=== PATIENT | male | born 1980 | race Hispanic/Latino ===

== ENCOUNTER 2018-03-12 12:58 | Emergency (ER) | payer OTHER | END 2018-03-12 14:24 | disposition home or self-care (01) | LOC: EDH 12:58 | DX: S21.241A Puncture wound with foreign body of right back wall of thorax without penetration into thoracic cavity, initial encounter (principal); W45.8XXA Other foreign body or object entering through skin, initial encounter; Y93.89 Activity, other specified; Y92.89 Other specified places as the place of occurrence of the external cause; Y99.8 Other external cause status ==

== ENCOUNTER 2018-11-30 03:09 | Emergency (ER) | payer OTHER ==
[2018-11-30 03:42] LABS: BASOPHILS % (AUTO) 4.5 % (0.0-5.0); MEAN CORPUSCULAR HEMOGLOBIN 32.1 pg (27.0-33.0); MEAN CORPUSCULAR HGB CONC 33.9 g/dL (32.0-36.0); MEAN CORPUSCULAR VOLUME 94.5 fL (79-99); MONOCYTES % (AUTO) 6.3 % (3.0-13.0); NEUTROPHILS % (AUTO) 66.2 % (40.0-77.0); PLATELET COUNT (AUTO) 301 K/uL (130-400); RED BLOOD CELL COUNT(AUTO) 4.55 MIL/uL (4.50-6.20); RED CELL DISTRIBUTION WIDTH 13.8 % (11.0-15.5); WHITE BLOOD COUNT (AUTO) 11.8 K/uL (4.8-10.8)
[2018-11-30 03:53] LABS: CREATININE 1.1 mg/dL (0.5-1.5)
[2018-11-30 03:55] LABS: INR 0.98 (0.85-1.15); PARTIAL THROMBOPLASTIN TIME 26.1 SEC (26.3-35.5); PROTHROMBIN TIME 10.3 SEC (9.6-11.6)
[2018-11-30 03:58] LABS: ALBUMIN 3.6 g/dL (3.5-5.0); BILIRUBIN,TOTAL 0.2 mg/dL (0.2-1.0); TOTAL PROTEIN, SERUM 7.6 g/dL (6.0-8.3)
[2018-11-30 04:04] LABS: APPEARANCE,URINE Clear (CLEAR); BILIRUBIN,URINE Negative (NEGATIVE); COLOR,URINE Yellow (YELLOW); GLUCOSE, URINE (UA) Negative (NEGATIVE); KETONES,URINE Negative (NEGATIVE); LEUKOCYTE ESTERASE ,URINE Negative (NEGATIVE); NITRATE,URINE Negative (NEGATIVE); OCCULT BLOOD,URINE Negative (NEGATIVE); PROTEIN,URINE Negative (NEGATIVE); UROBILINOGEN,URINE 0.2 mg/dL (0.2-1.0)
[2018-11-30 04:13] LABS: AMPHET/METH SCREEN,URINE NEGATIVE (NEGATIVE); BARBITURATE SCREEN, URINE NEGATIVE (NEGATIVE); BENZODIAZEPINES SCREEN,URINE NEGATIVE (NEGATIVE); CANNABINOID SCREEN,URINE NEGATIVE (NEGATIVE); COCAINE SCREEN,URINE POSITIVE (NEGATIVE); OPIATE SCREEN,URINE NEGATIVE (NEGATIVE); PHENCYCLIDINE SCREEN,URINE NEGATIVE (NEGATIVE)
[2018-11-30] MEDS ORDERED: THIAMINE HCL 100 MG/ML 2ML VIAL ONE (04:29)
[2018-11-30] MEDS ORDERED: SODIUM CHLORIDE 0.9% 1000ML 1,000 ML IV ONE (04:29)
[2018-11-30] MEDS ORDERED: OCTYL 2-CYANOACRYLATE 1 EACH TP ONE ×2 (04:30→04:31)
[2018-11-30] MEDS ORDERED: M.V.I. IV [ADULT] 10 ML VIAL IV ONE (04:30)
[2018-11-30] MEDS ORDERED: FOLIC ACID 5 MG/ML 10 ML VIAL ONE (04:30)
[2018-11-30] MEDS ORDERED: KETOROLAC TROMETHAMINE 30MG/ML ONE (04:38)
[2018-11-30] MEDS ORDERED: LIDOCAINE HCL 1% 20 ML VIAL ONE (05:26)
== END 2018-11-30 07:10 | disposition home or self-care (01) ==
LOC: EEVIPCON 03:09 → EDH 03:09
DX: S01.111A Laceration without foreign body of right eyelid and periocular area, initial encounter (principal); S01.411A Laceration without foreign body of right cheek and temporomandibular area, initial encounter; S01.81XA Laceration without foreign body of other part of head, initial encounter; H11.33 Conjunctival hemorrhage, bilateral; F10.129 Alcohol abuse with intoxication, unspecified; I48.91 Unspecified atrial fibrillation; Z72.0 Tobacco use; Y00.XXXA Assault by blunt object, initial encounter; Y93.89 Activity, other specified; Y92.89 Other specified places as the place of occurrence of the external cause; Y99.8 Other external cause status
CPT/HCPCS: 12014; 36415; 70450; 70486; 72125; 80053; 80305; 81003; 82550; 84484; 85025; 85610; 85730; 93005; 96365; 96366; 96375; 99291; G0480; J1885; J3411; J3490; J7030

== ENCOUNTER 2019-07-02 11:56 | Emergency (ER) | payer OTHER ==
[2019-07-02] MEDS ORDERED: ACETAMINOPHEN EXTRA STRENGTH 500 MG TABLET ONE (13:55)
== END 2019-07-02 14:26 | disposition home or self-care (01) ==
LOC: EDH 11:56
DX: L03.116 Cellulitis of left lower limb (principal)
CPT/HCPCS: 93971

== ENCOUNTER 2024-03-07 13:29 | Emergency (ER) | payer OTHER ==
[~2024-03-07] VITALS: Ht 180.3 cm; Wt 122.5 kg
[2024-03-07 13:31] VITALS: BP 112/85; PULSE 93; RESP 14
[2024-03-07] MEDS ORDERED: NAPR-1196 PO (15:38)
[2024-03-07] MEDS: HYDROCODONE/ACETAMINOPHEN 10/325 MG TAB PO ONE (16:12)
== END 2024-03-07 16:18 | disposition home or self-care (01) ==
LOC: EDH 13:29
DX: S90.512A Abrasion, left ankle, initial encounter (principal); W23.0XXA Caught, crushed, jammed, or pinched between moving objects, initial encounter; Y93.89 Activity, other specified; Y92.89 Other specified places as the place of occurrence of the external cause; Y99.8 Other external cause status
CPT/HCPCS: 73564; 73590; 73610